=== PATIENT | male | born 1950 | race Caucasian/White ===

== ENCOUNTER 2017-08-07 10:28 | Inpatient (IN) | payer OTHER ==
[~2017-08-07] VITALS: Ht 177.8 cm; Wt 55.1 kg
[2017-08-07] MEDS ORDERED: ASPIR LOW81 MG PO (11:12)
[2017-08-07] MEDS ORDERED: CLOPIDOGREL75 M1 PO (11:13)
[2017-08-07] MEDS ORDERED: LIPITOR40 MG PO (11:13)
[2017-08-07] MEDS ORDERED: VITAMIN B121000 MCG PO (11:14)
[2017-08-07] MEDS ORDERED: LASIX20 MG PO (11:14)
[2017-08-07] MEDS ORDERED: ZESTRIL5 MG PO (11:15)
[2017-08-07] MEDS ORDERED: TOPROL XL25 MG PO (11:16)
[2017-08-07] MEDS ORDERED: METFORMIN HCL1000 MG PO (11:16)
[2017-08-07] MEDS ORDERED: LACTULOSE10 GM/152 PO (11:19)
[2017-08-07] MEDS ORDERED: NOVOLIN R100 U/ML SQ (11:22)
[2017-08-07 11:46] LABS: ALBUMIN 4.4 g/dL (3.4-5.0); BILIRUBIN TOTAL 1.4 mg/dL (0.20-1.00); CALCIUM 9.7 mg/dL (8.5-10.1); CARBON DIOXIDE 22.2 mmol/L (21-32); CREATININE SERUM 1.8 mg/dL (0.7-1.3); POTASSIUM SERUM 5.1 mmol/L (3.5-5.1); TOTAL PROTEIN, SERUM 8.5 g/dL (6.4-8.2)
[2017-08-07 11:47] LABS: BASOPHIL % 0.4 % (0-2); PLATELET COUNT 326 x10^3mcL (130-400)
[2017-08-07 11:56] LABS: RED CELL DISTRIBUTION WIDTH 15.3 % (11.5-14.5)
[2017-08-07 15:11] LABS: microscopic required? NO
[2017-08-07 15:30] VITALS: BP 103/65
[2017-08-07 16:42] LABS: UA SPECIFIC GRAVITY 1.025 (1.005-1.035); urine erythrocyte NEGATIVE (NEGATIVE)
[2017-08-07 21:40] VITALS: BP 102/57
[2017-08-08 01:10] VITALS: BP 102/57
[2017-08-08 04:41] VITALS: Ht 177.8 cm; Wt 55.1 kg
[2017-08-08 06:02] LABS: BASOPHIL % 0.3 % (0-2); PLATELET COUNT 232 x10^3mcL (130-400)
[2017-08-08 06:13] VITALS: BP 101/55
[2017-08-08 06:24] LABS: CALCIUM 9.2 mg/dL (8.5-10.1); CARBON DIOXIDE 21.9 mmol/L (21-32); CREATININE SERUM 1.5 mg/dL (0.7-1.3); POTASSIUM SERUM 4.4 mmol/L (3.5-5.1)
[2017-08-08 06:38] LABS: RED CELL DISTRIBUTION WIDTH 15.3 % (11.5-14.5)
[2017-08-08 08:50] VITALS: BP 99/58
[2017-08-08 13:08] VITALS: BP 105/57
[2017-08-08 16:49] VITALS: BP 112/63
[2017-08-08 23:49] VITALS: BP 106/82
[2017-08-09 06:13] LABS: BASOPHIL % 0.3 % (0-2); PLATELET COUNT 212 x10^3mcL (130-400)
[2017-08-09 06:25] LABS: CALCIUM 9.1 mg/dL (8.5-10.1); CHLORIDE SERUM 99 mmol/L (98-107); GFR1 > 60 mL/min; GLUCOSE SERUM 129 mg/dL (74-106); POTASSIUM SERUM 4.3 mmol/L (3.5-5.1); SODIUM SERUM 135 mmol/L (136-145)
[2017-08-09 06:26] VITALS: BP 107/63
[2017-08-09 06:33] LABS: RED CELL DISTRIBUTION WIDTH 15.2 % (11.5-14.5)
[2017-08-09 08:54] VITALS: BP 94/57
[2017-08-09 14:14] VITALS: BP 109/71
[2017-08-09 14:29] VITALS: BP 109/71
== END 2017-08-09 18:40 | disposition other institution (70) | DRG 871 ==
LOC: ED 10:28 → DU 12:16
PROVIDERS: Emergency Medicine; ADMIT Internal Medicine
DX: A41.9 Sepsis, unspecified organism (principal); R65.21 Severe sepsis with septic shock; N17.9 Acute kidney failure, unspecified; E86.0 Dehydration; I25.10 Atherosclerotic heart disease of native coronary artery without angina pectoris; J44.9 Chronic obstructive pulmonary disease, unspecified; Z79.4 Long term (current) use of insulin; Z79.82 Long term (current) use of aspirin; Z79.84 Long term (current) use of oral hypoglycemic drugs; Z86.73 Personal history of transient ischemic attack (TIA), and cerebral infarction without residual deficits; I11.0 Hypertensive heart disease with heart failure; I50.9 Heart failure, unspecified; I25.2 Old myocardial infarction; E78.5 Hyperlipidemia, unspecified
CPT/HCPCS: 82962; J2270; J2543; J3490; J7030; J7042; Q0092